=== PATIENT | male | born 1995 | race Caucasian/White ===

== ENCOUNTER 2021-05-11 13:42 | Emergency (ER) | payer OTHER ==
[2021-05-11] MEDS ORDERED: HYDROCODON-ACE1 EAC4 PO (16:25)
== END 2021-05-11 16:28 | disposition home or self-care (01) ==
LOC: ER1 13:42
DX: S82.62XA Displaced fracture of lateral malleolus of left fibula, initial encounter for closed fracture (principal); S82.292A Other fracture of shaft of left tibia, initial encounter for closed fracture; X50.1XXA Overexertion from prolonged static or awkward postures, initial encounter; Y92.009 Unspecified place in unspecified non-institutional (private) residence as the place of occurrence of the external cause
CPT/HCPCS: 29125; 73590; 73610; 99283; J2270

== ENCOUNTER 2021-05-13 12:58 | Emergency (ER) | payer OTHER ==
[~2021-05-13 12:58] MED LIST: HYDROCODON-ACE1 EAC4 PO
== END 2021-05-13 13:46 | disposition home or self-care (01) ==
LOC: ER1 12:58
PROC: 2W3RX1Z Immobilization of Left Lower Leg using Splint (ICD-10-PCS; principal; 2021-05-13)
DX: S82.832A Other fracture of upper and lower end of left fibula, initial encounter for closed fracture (principal); X58.XXXA Exposure to other specified factors, initial encounter; Y92.009 Unspecified place in unspecified non-institutional (private) residence as the place of occurrence of the external cause
CPT/HCPCS: 29125; 29515; 99283